=== PATIENT | female | born 1990 | race Hispanic/Latino ===

== ENCOUNTER 2024-06-03 06:19 | Emergency (ER) | payer OTHER, SELFPAY ==
[2024-06-03 06:29] VITALS: BP 148/90
[2024-06-03 07:49] LABS: % Basophils 0.5 % (0-2); % Eosinophils 1.4 % (0-6); % Immature Granulocytes 0.3 % (0-0.5); % Lymphocytes 21.9 % (20.5-51.1); % Monocytes 3.5 % (1.7-9.3); % Neutrophils 72.4 % (42.2-75.2); Absolute Eosinophils 0.1 10^3/uL (0-0.7); Absolute Lymphocytes 1.4 10^3/uL (1.2-3.4); Absolute Monocytes 0.2 10^3/uL (0.1-0.6); Absolute Neutrophils 4.5 10^3/uL (1.4-6.5); Hematocrit 36.2 % (37.0-47.0); Mean Corp Hgb Conc. 33.1 g/dL (33.0-37.0); Mean Corpuscular Hgb 24.7 pg (27.0-31.0); Mean Corpuscular Volume 74.5 fL (81.0-99.0); Mean Platelet Volume 9.7 fL (7.4-10.4); Nucleated Red Blood Cells % 0 %; Platelet Count 383 10^3/uL (130-400); Red Blood Cell Count 4.86 10^6/uL (4.20-5.40); Red Cell Dist. Width 13.8 % (11.5-14.5); White Blood Cell Count 6.3 10^3/uL (4.8-10.8)
[2024-06-03 07:57] LABS: ALT (SGPT) 67 U/L (0-35); AST (SGOT) 42 U/L (14-36); Albumin 4.4 g/dl (3.5-5.0); Alkaline Phosphatase 87 U/L (38-126); Blood Urea Nitrogen 5 mg/dl (7-17); Calcium 9.4 mg/dl (8.4-10.2); Carbon Dioxide 22 mmol/L (22-30); Chloride 108 mmol/L (98-107); Glucose 164 mg/dl (70-99); Potassium 3.6 mmol/L (3.5-5.1); Sodium 142 mmol/L (135-145); Total Bilirubin 0.4 mg/dl (0.2-1.3); Total Protein 7.7 g/dl (6.3-8.2); eGFR > 60.00
[2024-06-03 09:11] VITALS: BP 132/76
[2024-06-03] MEDS: ZOFRAN ODT (ORALLY DISINTEGRATING) 4 MG PO (09:17)
[2024-06-03] MEDS: PROTONIX 40 MG PO (09:18)
[2024-06-03 09:29] LABS: Urine Albumin 2+ (Neg - Trace); Urine Bilirubin Negative (Negative); Urine Character Slightly Cloudy (Clear); Urine Color Yellow; Urine Glucose Negative (Negative); Urine Ketone Negative (Negative); Urine Leukocyte Negative (Negative); Urine Nitrite Negative (Negative); Urine Occult Blood 4+ (Negative); Urine Specific Gravity 1.015 (<1.030); Urine Urobilinogen Negative (Neg - 1+)
--- NOTE | 2024-06-03 09:29 | ED.GENMED ---
History of Present Illness
General
Chief Complaint: Abdominal Pain
Source: patient
Exam Limitations: none
Time Seen by Provider: 06/03/24 09:00
Nursing documentation reviewed up to this point in time: agreed with
History of Present Illness
History of Present Illness:
33-year-old female presents with back pain started after moving furniture at work in her mid back on the right side, took some ibuprofen and developed nausea and vomited, back pain improved, said her gallbladder out she has had 3 C-sections denies
states she is really feeling better now, no chest pain or shortness of breath did have a few alcoholic drinks last night
Past History
Past History
ED Past Medical History: Other (Anemia)
ED Past Surgical History: Cholecystectomy and
Social History
Tobacco: Non-smoker
Alcohol: None
Family History
Family History: Negative Diabetes, Hypertension or CAD
Phy Exam
Physical Exam
Physical Exam:
Physical Exam
General: no apparent distress, not acutely ill
Neck: No jaundice
Heart: s1/s2 regular rate and rhythm, no murmur. equal radial pulses.
Lungs: no acute respiratory distress. clear bilaterally
Abdomen: Soft nontender
Back: Minimal tenderness in the right mid upper back paraspinal
Neuro: alert and oriented. no focal neurological deficits
Skin: no rash
Psychiatric: well kept. interactive and cooperative
Extremities: no edema. no calf tenderness. negative homans. good distal pulses
Course
Orders/Labs/Results
Orders:
Orders
06/03/24 07:30
Complete Blood Count/With Diff Urgent
Comprehensive Metabolic Panel Urgent
HCG, Serum Qualitative Screen Urgent
Comment: ADD ON
Lipase Urgent
Comment: ADD ON
06/03/24 09:13
Urinalysis Urgent
Date Specimen was Collected: 06/03/24
Time Specimen was Collected: 06:49
Urine Microscopic Urgent
Date Specimen was Collected: 06/03/24
Time Specimen was Collected: 06:49
06/03/24 09:16
Add On- LAB Urgent
Tests Added?: lipase
Ondansetron Orally Disint [Zofran Odt (Orally Disintegrating)] 4 mg .ROUTE .STK-MED ONE
Ondansetron Orally Disint [Zofran Odt (Orally Disintegrating)] 4 mg PO NOW STA
Pantoprazole [Protonix] 40 mg .ROUTE .STK-MED ONE
Pantoprazole [Protonix] 40 mg PO NOW STA
06/03/24 09:17
Add On- LAB Urgent
Tests Added?: hcg qualitative
06/03/24 09:26
Electrocardiogram (*1) Urgent
Reason for Study: Abdominal Pain
EKG- Treatment ONCE
Abnormal Lab Results
06/03/24 06/03/24
07:30 09:13
Hct 36.2 L %
(37.0-47.0)
MCV 74.5 L fL
(81.0-99.0)
MCH 24.7 L pg
(27.0-31.0)
Chloride 108 H mmol/L
(98-107)
BUN 5 L mg/dl
(7-17)
Glucose 164 H mg/dl
(70-99)
AST 42 H U/L
(14-36)
ALT 67 H U/L
(0-35)
Urine Occult Blood 4+ A
(Negative)
Urine Albumin 2+ A
(Neg - Trace)
06/03/24 07:30
06/03/24 07:30
Vital Signs
Initial and Last Documented VS:
Initial Vital Signs
Temp Pulse Resp BP Pulse Ox
98.2 F 84 20 148/90 100
06/03/24 06:29 06/03/24 06:29 06/03/24 06:29 06/03/24 06:29 06/03/24 06:29
Last Documented Vital Signs
Temp Pulse Resp BP Pulse Ox
98.2 F 68 15 146/79 100
06/03/24 06:29 06/03/24 10:13 06/03/24 10:13 06/03/24 10:13 06/03/24 09:11
MDM/Problems Addressed
Differential Diagnosis Includes:
Back pain abdominal pain nausea vomiting
MDM/Problems Addressed:
Back pain abdominal pain nausea
Chronic conditions affecting care:
Prior abdominal
Acute Exacerbation and/or Progression of Chronic Illness:
Prior abdominal surgery
*Pulse Oximetry
Patient hypoxic: no
*EKG
Interpreted by ED Provider?: Yes
Interpretation: normal
Comparison EKG: no changes
Heart Rate: 78
Rate: normal
Rhythm: sinus
Ischemia: T-wave inversion
*Academic Administrator Interpretation
Rate: normal
Interpretation: normal
Heart Rate: 78
Rhythm: sinus
*Critical Care Note
Total Time (30-74mins, 75-104mins- exclusive of procedures): Not Applicable
Update Note
Update Note:
Update patient feeling better, does not appear to pancreatitis by labs slight elevation of LFTs, was drinking alcohol last night, EKG is nonischemic -T wave version, seen on prior EKG suspect her symptoms may be related to NSAID use on empty stomach
ED Attending Note
-
Portions of this chart may have been created with voice recognition software.� Occasional wrong word or��sound alike� substitutions may have occurred due to the inherent limitations of voice recognition software.
Discharge Plan
Departure
Patient Disposition: Home (Routine Discharge)
Date of Disposition: 06/03/24
Time of Disposition: 10:22
Patient with high blood pressure during this ER visit?: No
Condition: Good
Discharge Problem:
Back pain
Instructions: Nausea and Vomiting, Adult (DC), Gastritis (DC), Back Pain
Prescriptions:
New
ondansetron HCl 4 mg tablet
4 mg PO Q8H PRN (Reason: nausea and vomiting) Qty: 10 0RF
metaxalone 800 mg tablet
800 mg PO TID PRN (Reason: muscle pain) Qty: 10 0RF
ibuprofen 600 mg tablet
600 mg PO Q8H PRN (Reason: Pain) Qty: 20 0RF
Rx Instructions:
Take with food in your stomach
No Action
ibuprofen 600 MG tablet
600 mg PO Q4HPRN PRN (Reason: cramps) 0RF
Activity Restrictions/Additional Instructions:
You can use ibuprofen take with food your stomach,
Interventions
Interventions:
*Risk Screen - Suicide Last Done: 06/03/24 06:29
*General Assessment Last Done: 06/03/24 09:20
*Neglect/Abuse Screening Last Done: 06/03/24 06:29
*ED- Fall Risk Assessment Last Done: 06/03/24 09:20
*ED COVID-19 Vaccine History Last Done: 06/03/24 09:20
EK-Vutzvy-Pwpfrjsshp Assessment Last Done: 06/03/24 09:11
Discharge Date and Time
Print Language: YI
[2024-06-03 10:05] LABS: Lipase 108 U/L (23-300)
[2024-06-03 10:13] VITALS: BP 146/79
[2024-06-03 10:19] LABS: HCG, Serum Qualitative Screen Negative
[2024-06-03 10:41] LABS: Urine Bacteria Many (Negative)
== END 2024-06-03 10:33 | disposition home or self-care (01) ==
LOC: EMR 06:19
PROVIDERS: EMERGENCY PHYSICIAN Emergency Medicine; FAMILY PHYSICIAN Emergency Medicine
DX: M54.9 Dorsalgia, unspecified (principal); R11.2 Nausea with vomiting, unspecified; Z90.49 Acquired absence of other specified parts of digestive tract
CPT/HCPCS: 99284; 80053; 81003; 81015; 83690; 84703; 85025; 93005